=== PATIENT | female | born 1990 | race Caucasian/White ===

== ENCOUNTER 2017-12-14 15:54 | Inpatient (IN) | payer OTHER ==
[~2017-12-14 15:54] MED LIST: Dexamethasone 20 MG/5 ML VIAL ONE; Glycopyrrolate 0.2 MG/ML 5 ML SYRINGE ONE; Ketorolac Tromethamine 30 MG/ML VIAL ONE; Lidocaine 1% PF 5 ML VIAL ONE; Ondansetron HCl/PF 4 MG/2 ML Vial ONE; PROPOFOL 200 MG/20 ML VIAL ONE; Succinylcholine Chloride 20 MG/ML 10 ml SYRINGE FS ONE
[2017-12-14] MEDS ORDERED: CEFAZOLIN 1 GM VIAL ONE ×2 (15:58→16:10)
[2017-12-14] MEDS ORDERED: Adacel (T-DAP) 0.5 ML VIAL ONE (15:58)
[2017-12-14] MEDS ORDERED: Fentanyl 100 MCG/2 ML VIAL ONE ×2 (16:02→16:28)
[2017-12-14 16:09] LABS: #Basophils 0.2 thou/uL (0.0-0.2); #Eosinphils 0.2 thou/uL (0.0-0.7); #Lymphocytes 4.4 thou/uL (1.20-3.40); #Monocytes 0.6 thou/uL (0.11-0.59); #Neutrophils 5.5 thou/uL (1.40-6.50); %Basophils 2.2 % (0.0-1.0); %Eosinophils 1.7 % (0.0-10.0); %Monocytes 5.8 % (0.0-10.0); %Neutrophils 50.4 % (42.0-75.0); Hemoglobin 13.1 g/dL (12.0-16.0); Mean Corpuscular HGB CONC 34.6 g/dL (32.0-36.0); Mean Corpuscular Volume 92.4 fL (78.0-98.0); Mean Platelet Volume 7.3 fL (7.4-10.4); Platelet Count 266 thou/uL (130-400); RBC Distribution Width 13.7 % (11.5-14.5); White Blood Cell (WBC) Count 10.9 thou/uL (4.8-10.8)
[2017-12-14] MEDS ORDERED: Midazolam HCl 5 mg/5 ml Vial ONE (16:10)
[2017-12-14] MEDS ORDERED: Phenylephrine HCL 10 MG/ML VIAL ONE (16:10)
[2017-12-14] MEDS ORDERED: traMADol HCl 50 MG TAB PO PRN ×2 (16:13→18:38)
[2017-12-14] MEDS ORDERED: Dextrose 50% Abboject 50 ML SYRINGE SLOW IVP PRN ×2 (16:14→18:38)
[2017-12-14] MEDS ORDERED: Ondansetron HCl/PF 4 MG/2 ML Vial IVP PRN ×2 (16:14→18:46)
[2017-12-14] MEDS ORDERED: Dextrose 5% in Water 1,000 ML IV PRN ×2 (16:14→18:38)
[2017-12-14] MEDS ORDERED: Ondansetron ODT 4 MG TAB PO PRN ×2 (16:14→18:39)
[2017-12-14] MEDS ORDERED: Acetaminophen 500 MG TAB PO SCH (16:15)
[2017-12-14] MEDS ORDERED: Ibuprofen 800 MG TAB PO SCH (16:15)
[2017-12-14] MEDS ORDERED: traMADol HCl 50 MG TAB PO SCH (16:15)
[2017-12-14 16:22] LABS: PTT 21.5 SEC (22.9-36.1)
[2017-12-14 16:24] LABS: BHCG - Serum Negative (NEGATIVE); Pregs Control Background? CLEAR/WHITE (CLR/WHITE); Pregs Control Bar Appear? YES (CONTROL BAR)
[2017-12-14 16:26] LABS: ALT (SGPT) 22 U/L (8-55); AST (SGOT) 12 U/L (5-34); Albumin 3.5 g/dL (3.5-5.0); Alkaline Phosphatase 43 U/L (40-150); Anion Gap 12 mmol/L (10-20); BUN (Urea Nitrogen) 10 mg/dL (7.0-18.7); Bilirubin, Total 0.4 mg/dL (0.2-1.2); Calc. Creatinine Clearance 0 mL/min (70-130); Calcium 8.3 mg/dL (7.8-10.44); Carbon Dioxide 23 mmol/L (22-29); Chloride 109 mmol/L (98-107); Estimated GFR-MDRD Greater than 90; Globulin 2.2 g/dL (2.4-3.5); Glucose 87 mg/dL (70-105); Potassium 3.8 mmol/L (3.5-5.1); Protein, Total 5.7 g/dL (6.0-8.3); Sodium 140 mmol/L (136-145)
--- NOTE | 2017-12-14 16:45 | RAD ---
AP AND LATERAL VIEWS RIGHT FOREARM: 12/14/17 HISTORY: Soft tissue injury. AP and lateral views right forearm demonstrates the radiograph not to be true AP and lateral views wi th extensive angulation seen. No definite evidence of radial or ulnar fractures seen. Due to the angulation, some portions of the i mages are blurry as they are far away from the digital cassette. IMPRESSION: Unremarkable but suboptimal right forearm radiographs. POS: [facility]
[2017-12-14] MEDS ORDERED: Ferrous Sulfate 325 MG TAB PO SCH (17:00)
[2017-12-14] MEDS ORDERED: Heparin 5,000 UNITS/ML VIAL ONE (17:09)
[2017-12-14] MEDS ORDERED: Papaverine 60 MG/2 ML VIAL ONE (17:36)
[2017-12-14] MEDS ORDERED: HYDROmorphone 0.5 MG/0.5 ML SYRINGE ONE ×2 (17:42→17:54)
[2017-12-14] MEDS ORDERED: Promethazine HCl 25 MG/ML VIAL SLOW IVP PRN (18:46)
[2017-12-14] MEDS ORDERED: HYDROmorphone 2 MG/ML VIAL SLOW IVP PRN (18:46)
[2017-12-14] MEDS ORDERED: Promethazine HCl 25 MG/ML VIAL IM PRN (18:46)
[2017-12-14 19:54] VITALS: BMI 31.1
[2017-12-14] MEDS: Acetaminophen 500 MG TAB PO SCH (20:33)
[2017-12-14] MEDS: Ibuprofen 800 MG TAB PO SCH (20:34)
[2017-12-14] MEDS: Gabapentin 100 MG CAP PO SCH (20:44)
[2017-12-14] MEDS: traMADol HCl 50 MG TAB PO SCH (20:44)
[2017-12-14] MEDS: Ascorbic Acid 500 mg Chewable Tablet PO SCH (20:45)
[2017-12-14] MEDS: Senokot S 8.6-50 MG TAB PO SCH (20:45)
[2017-12-14] MEDS ORDERED: Senokot S 8.6-50 MG TAB PO SCH (21:00)
[2017-12-14] MEDS ORDERED: Ascorbic Acid 500 mg Chewable Tablet PO SCH (21:00)
[2017-12-14] MEDS ORDERED: Gabapentin 100 MG CAP PO SCH (21:00)
[2017-12-14] MEDS: Nicotine 21 MG PATCH TOP SCH (22:46)
[2017-12-15] MEDS: Acetaminophen 500 MG TAB PO SCH ×4 (00:23→17:32)
[2017-12-15] MEDS: Ibuprofen 800 MG TAB PO SCH ×3 (00:24→18:57)
[2017-12-15] MEDS: traMADol HCl 50 MG TAB PO SCH ×4 (00:24→17:31)
[2017-12-15] MEDS: Aspirin 325 MG TAB PO SCH (08:29)
[2017-12-15] MEDS: Ascorbic Acid 500 mg Chewable Tablet PO SCH ×2 (08:29→20:36)
[2017-12-15] MEDS: Gabapentin 100 MG CAP PO SCH ×3 (08:29→20:36)
[2017-12-15] MEDS: Senokot S 8.6-50 MG TAB PO SCH ×2 (08:30→20:36)
[2017-12-15] MEDS: Ferrous Sulfate 325 MG TAB PO SCH ×2 (08:30→17:31)
[2017-12-15] MEDS: Polyethylene Glycol 3350 17 GM Packet PO SCH (08:30)
[2017-12-15] MEDS ORDERED: Polyethylene Glycol 3350 17 GM Packet PO SCH (09:00)
--- NOTE | 2017-12-15 09:02 | OP ---
PREOPERATIVE DIAGNOSIS: Laceration of volar ulnar aspect of the wrist with ulnar nerve and artery di vision. SURGEON: Alfonzo Hurley M.D. STOCK SUPERVISOR: Dr. Shaw Langley. PROCEDURE PERFORMED: Wound exploration approximation of ulnar nerve, closure of wound. INDICATIONS: This is a 27-year-old female who hit a glass window with a fist, it broke and she lacer ated her volar wrist on the ulnar aspect with an arterial bleed. FINDINGS: The ulnar nerve was transected. The ulnar artery was lacerated and crushed. This was rep aired intraoperatively by Dr. Tellez. PROCEDURE IN DETAIL: On emergency basis with a tourniquet applied, patient was taken to the operatin g room and given general endotracheal anesthesia. A pneumatic tourniquet was placed more proximal on the right arm towards the axilla and the ambulance tourniquet was removed. The arm was prepped and draped in usual fashion. The wound was thoroughly irrigated. Irrigation fluid removed, then the angie rniquet was slowly taken down and at this point, there was no bleeding. Doppler of the radial artery was fine in fact, it was palpable. Doppler of the ulnar artery was fine, but it was coming through the palmar arch. Because you could see both proximal and distal to the crush, there was a crush inju ry of the ulnar artery and there was no flow through that segment. There was probably about 3 mm in length, so there was then we got some bleeding from a side branch, which controlled with small clips and further extended the incision to dissect out the ulnar artery proximally and distally. Control w as also obtained proximally and distally using rubber vessel loops. The ulnar nerve was then looked for and that had been completely divided and had retracted. While waiting for the vascular surgeon t o arrive just used a 6-0 in the perineural area to reapproximate the ulnar nerve for future repair. Then Dr. Doroteo Tellez arrived and repaired the ulnar artery. Hemostasis was assured. The wound thoroughly irrigated. There was a superficial tendon that was also disrupted. The hand johnson aldrich was not available, because who was in another room, but he came in and advise us to just going clos e and that he would finish the repair later, so the subcutaneous was reapproximated with interrupted 3-0 Vicryl. Skin closed with interrupted 4-0 Rapide. Steri-Strips applied. Sterile bandage applied . There were also two lacerations on her index finger and posterior hand. These were closed with in terrupted 4-0 vertical mattress sutures with nylon.
--- NOTE | 2017-12-15 09:02 | HP ---
CHIEF COMPLAINT: Laceration of the right wrist. HISTORY: Patient is a 27-year-old female who got frustrated and hit a window, breaking it sustaining a laceration to her right anterior wrist ulnar side. She had arterial pumping from the wound. She applied pressure and went to EMS and walked into EMS, and she was brought here by ambulance. This oc curred probably about an hour ago and apparently estimate is about 1 liter blood loss. She did have tachycardia and hypotension at one point and that responded quickly to fluids. She is also right canales ded. PAST MEDICAL HISTORY: Significant for hypothyroidism. PAST SURGICAL HISTORY: She has had a lipoma removed from her chest. ALLERGIES: She is allergic to NUBAIN and PENICILLIN. MEDICATIONS: She is on no medications. FAMILY HISTORY: Negative. SOCIAL HISTORY: She is , smokes one half pack per day. Social alcohol. PHYSICAL EXAMINATION: VITAL SIGNS: She is afebrile, pulse 116, blood pressure 119/88. GENERAL: She is awake and alert, GCS 15. HEENT: Pupils are equal, round, and reactive. Extraocular motor intact. Pharynx clear. Good denti tion. NECK: Supple, no thyroid masses, no carotid bruits. LUNGS: Clear. HEART: Regular rate and rhythm. ABDOMEN: Soft, nondistended, nontender. Pelvis unremarkable. LOWER EXTREMITIES: Unremarkable. She has a tourniquet in place on the right forearm with a 5-cm lac eration ulnar aspect of the volar right hand. When the tourniquet was decompressed, I could feel a g ood radial pulse and there was a thready ulnar pulse. Then we got a fairly significant arterial blee ding from the wound which could not be visualized in the ER. The tourniquet was reapplied. ASSESSMENT: Laceration with possible ulnar artery injury. PLAN: the operating room.
--- NOTE | 2017-12-15 09:02 | OP ---
DATE OF PROCEDURE: 12/14/2017 PROCEDURE PERFORMED: Primary repair of distal right ulnar artery. PREOPERATIVE DIAGNOSIS: Transected right ulnar artery. POSTOPERATIVE DIAGNOSIS: Transected right ulnar artery. SURGEON: Dr. Doroteo Tellez. CAREER TRANSITION SPECIALIST: Dr. Hurley. ANESTHESIA: General endotracheal anesthesia. INDICATIONS: Patient is a 27-year-old woman with laceration on her right wrist after being cut on a window pane. She had pulsatile bleeding that was brought under control with tourniquet and upon exploration in the operating room, she was found to have a transected ulnar artery. NARRATIVE REPORT: Patient was taken to the operating room and placed in supine position on the operating table. General endotracheal anesthesia was induced. Her right arm was prepped and draped in sterile fashion, and the wound was explored by Dr. Hurley. While I was in transit, he was able to identify the transected ends of the ulnar artery. They were not bleeding. Upon my arrival on the examination of the wound, the proximal and distal stumps of the vessel were mobilized, ligating, and dividing a few small side branches on either side to facilitate mobilization. The ends were freshened. A #3 Andrew catheter was passed proximally and distally. No thrombus was extracted. Brisk inflow and backflow bleeding was reestablished. Dilute papaverine solution was then instilled intraluminally into either end of the vessel and the vessels occluded distally with forceps pressure to allow for auto dilation with intraluminal vasodilator. Vascular clamps were then reapplied at proximally and distally such that there was no tension on the anastamosis. Two 7-0 Prolene sutures were then used in a modified Alfredo technique to reanastomosis the two ends, end-to-end. Bleeding from one-side branch near the anastomosis was noted upon removal of the vascular clamps. This was readily controlled with a small Hemoclip, perivascular tissue was then reapproximated to further guard against undue tension on the anastomosis. The hand was pink with a brisk capillary refill in all of the fingertips. The dopplerable palmar arch and digital vessels in the thumb and fifth finger were readily identified. MTDD
--- NOTE | 2017-12-15 09:02 | CON ---
DATE OF CONSULTATION: 12/14/2017 REQUESTING PHYSICIAN: Dr. Hurley. CHIEF COMPLAINT: Pulsatile bleeding from right wrist wound. HISTORY OF PRESENT ILLNESS: Intraoperative consult Dr. Hurley contacted me from the emergency room sh ortly before the patient was to be transported to the operating room. This is a young woman who appa rently put her hand through a window pane and had extensive bleeding from the wound on the ulnar vola r aspect of her right wrist. Bleeding was brought under control with placement of a tourniquet and s he reports some numbness along the ulnar aspect of her hand about 20-30 minutes into the tourniquet t bhaskar. No other history or review of systems is possible that the patient is under anesthesia. PHYSICAL EXAMINATION: Physical examination was limited to the operative field and the monitors. VITAL SIGNS: Patient's vital signs under anesthesia, heart rate of 92, blood pressure is 97/46. EXTREMITIES: There is an oblique laceration several centimeters wide long extending primarily transv ersely on the distal volar right forearm near the wrist centered toward the ulnar aspect, there is se ryan nerve and Dr. Hurley has exposed the transected ends of the ulnar artery. The hand has been pre pped, but appears to be pink and a pulse is visible in the distal stump of the ulnar artery. IMPRESSION AND RECOMMENDATIONS: Although the hand appears to be adequately perfused based on its col or and good capillary refill and supported by the obvious pole sensations in the distal stump of the ulnar artery, it is probably advisable to at least attempt repair of the ulnar artery.
[2017-12-15] MEDS: Ondansetron HCl/PF 4 MG/2 ML Vial IVP PRN (10:36)
[2017-12-15] MEDS ORDERED: Sodium Chloride 0.9% 500 ML IVPB SCH (14:30)
--- NOTE | 2017-12-15 15:00 | PRG ---
DATE OF SERVICE: 12/15/2017. SUBJECTIVE: This is a 27-year-old female who presented to [place] ER status post trauma to right upper extremity secondary to punching her hand through a glass plate. The patient did sustain ulnar artery and nerve damage. She was taken to the operating room with Dr. Hurley and Dr. Geoff kevin for repair of her ulnar artery. She is going to be seen by Dr. Wells for ulnar nerve damage . Upon my evaluation this morning, the patient states that her pain has been well controlled and voc alized no complaints. OBJECTIVE: VITAL SIGNS: Temperature 98.0, pulse 87, respirations 16, O2 sat 96% on room air, blood pressure 116 /78. GENERAL: Resting in bed. No acute distress. LUNGS: Breathing is nonlabored. ABDOMEN: Soft, nontender, nondistended. MUSCULOSKELETAL: Right upper extremity dressing is clean, dry, and intact. She is neurovascularly i ntact except to the site of her injury. NEUROLOGIC: No focal deficit is noted. LABORATORY FINDINGS: No new laboratory findings. ASSESSMENT: 1. Status post right upper extremity trauma. 2. Right wrist laceration with ulnar nerve and artery damage. 3. Acute traumatic pain. PLAN: Continue pain management as ordered. Encouraged mobility. Encourage incentive spirometry and pulmonary toileting. The patient will be evaluated by Dr. Wells later this afternoon. Plan of c are was discussed with the patient. All questions were answered at the time of this dictation. Lani ent has been discussed with trauma attending.
[2017-12-15] MEDS ORDERED: Clindamycin/D5W 600 MG in Premix Bag 1 BAG IVPB SCH (16:00)
[2017-12-15] MEDS: Nicotine 21 MG PATCH TOP SCH (20:36)
[2017-12-15] MEDS: CEFAZOLIN 1 GM in Sodium Chloride 0.9% 100 ML IVPB SCH (22:09)
[2017-12-15] MEDS ORDERED: diphenhydrAMINE 25 MG CAP PO SCH (22:45)
[2017-12-16] MEDS: traMADol HCl 50 MG TAB PO SCH ×5 (00:30→23:57)
[2017-12-16] MEDS: Acetaminophen 500 MG TAB PO SCH ×5 (00:30→23:57)
[2017-12-16] MEDS: Nicotine 21 MG PATCH TOP SCH ×2 (03:28→23:53)
[2017-12-16] MEDS: Ibuprofen 800 MG TAB PO SCH ×3 (03:29→19:06)
[2017-12-16 05:18] LABS: #Basophils 0.1 thou/uL (0.0-0.2); #Eosinphils 0.1 thou/uL (0.0-0.7); #Lymphocytes 4.1 thou/uL (1.20-3.40); #Monocytes 0.7 thou/uL (0.11-0.59); #Neutrophils 6.4 thou/uL (1.40-6.50); %Basophils 0.5 % (0.0-1.0); %Lymphocytes 36.5 % (21.0-51.0); %Monocytes 5.7 % (0.0-10.0); %Neutrophils 56.3 % (42.0-75.0); Hemoglobin 10.7 g/dL (12.0-16.0); Mean Corpuscular HGB CONC 33.1 g/dL (32.0-36.0); Mean Corpuscular Hemoglobin 30.9 pg (27.0-31.0); Mean Corpuscular Volume 93.5 fL (78.0-98.0); Mean Platelet Volume 7.4 fL (7.4-10.4); Platelet Count 230 thou/uL (130-400); RBC Distribution Width 13.8 % (11.5-14.5); Red Blood Cell (RBC) Count 3.46 mill/uL (4.20-5.40); White Blood Cell (WBC) Count 11.4 thou/uL (4.8-10.8)
[2017-12-16] MEDS: CEFAZOLIN 1 GM in Sodium Chloride 0.9% 100 ML IVPB SCH ×3 (06:22→23:53)
[2017-12-16] MEDS: Ferrous Sulfate 325 MG TAB PO SCH ×2 (08:16→19:05)
[2017-12-16] MEDS: Sodium Chloride 0.9% 1,000 ML IV SCH ×2 (08:26→19:05)
[2017-12-16] MEDS: Gabapentin 100 MG CAP PO SCH ×3 (08:30→21:00)
[2017-12-16] MEDS: Aspirin 325 MG TAB PO SCH (09:33)
[2017-12-16] MEDS: Ascorbic Acid 500 mg Chewable Tablet PO SCH ×2 (09:33→21:00)
[2017-12-16] MEDS: Polyethylene Glycol 3350 17 GM Packet PO SCH (09:34)
[2017-12-16] MEDS: Senokot S 8.6-50 MG TAB PO SCH ×2 (09:34→21:00)
--- NOTE | 2017-12-16 11:05 | PRG ---
DATE OF SERVICE: 12/16/2017 SUBJECTIVE: This is a 27-year-old female, status post laceration to the wrist after punching through a piece of glass. She sustained an ulnar artery and nerve damage. She is postop day #2 status post her ulnar artery repair with Dr. Tellez and Dr. Hurley. She has been seen and evaluated with Dr Alanna Wells and currently n.p.o. for repair of her ulnar nerve. Upon our evaluation this morning, the patient states her pain has been well controlled and she vocalized no complaint. OBJECTIVE: VITAL SIGNS: Temperature 98.2, pulse 100, respirations 14, O2 sat 99% on room air, blood pressure 12 6/82. GENERAL: A young female sitting on the edge of bed, in no acute distress. PULMONARY: Normal work of breathing. Symmetric rise. CARDIOVASCULAR: Mildly tachycardic, no obvious murmurs, rubs, or gallops. GASTROINTESTINAL: Abdomen is soft, nontender, nondistended. MUSCULOSKELETAL: Right upper extremity dressing clean, dry, and intact. She has limited mobility of the fourth and fifth fingers, but she has good capillary refill. NEUROLOGIC: No focal deficit is noted. LABORATORY FINDINGS: WBC 11.4, hemoglobin 10.7, hematocrit 32.4, platelet count 230. ASSESSMENT: 1. Status post right upper extremity trauma secondary to glass. 2. Right wrist laceration with ulnar nerve and artery damage. 3. Acute traumatic pain. PLAN: The patient to OR with Dr. Wells later today. We will follow up postoperatively. Continue PT and OT. Encouraged mobility. Follow up with Dr. Wells postoperatively. Plan of care was dis cussed with the patient. All questions were answered at the time of this dictation. The patient was seen and evaluated with Dr. Harvey.
[2017-12-16] MEDS: Ondansetron HCl/PF 4 MG/2 ML Vial IVP PRN (13:52)
[2017-12-16] MEDS ORDERED: Ketorolac Tromethamine 30 MG/ML VIAL ONE (14:13)
[2017-12-16] MEDS ORDERED: Dexamethasone 20 MG/5 ML VIAL ONE (14:13)
[2017-12-16] MEDS ORDERED: PROPOFOL 200 MG/20 ML VIAL ONE (14:13)
[2017-12-16] MEDS ORDERED: Ondansetron HCl/PF 4 MG/2 ML Vial ONE (14:13)
[2017-12-16] MEDS ORDERED: Lidocaine 1% PF 5 ML VIAL ONE (14:13)
[2017-12-16] MEDS ORDERED: Clindamycin/D5W 600 mg/50 ml Premix Bag ONE (16:15)
[2017-12-16] MEDS ORDERED: Betamet Acet/Betamet Na Ph 30 MG/5 ML VIAL ONE (19:11)
[2017-12-16] MEDS ORDERED: Bacitracin Zinc Ointment 30 gm TUBE ONE (19:11)
[2017-12-16] MEDS ORDERED: Midazolam HCl 2 mg/2 ml Vial ONE (19:15)
[2017-12-16] MEDS ORDERED: HYDROmorphone 0.5 MG/0.5 ML SYRINGE ONE ×3 (19:38→21:54)
[2017-12-16] MEDS ORDERED: HYDROmorphone 2 MG/ML VIAL SLOW IVP PRN (22:55)
[2017-12-16] MEDS ORDERED: Promethazine HCl 25 MG/ML VIAL IM PRN (22:55)
[2017-12-16] MEDS ORDERED: Promethazine HCl 25 MG/ML VIAL SLOW IVP PRN (22:55)
[2017-12-16] MEDS ORDERED: Ondansetron HCl/PF 4 MG/2 ML Vial IVP PRN (22:55)
[2017-12-16] MEDS ORDERED: Promethazine HCl 25 MG/ML VIAL ONE (23:10)
[2017-12-16] MEDS ORDERED: traMADol HCl 50 MG TAB PO PRN (23:13)
[2017-12-16] MEDS ORDERED: Acetaminophen 325 MG TAB PO PRN (23:13)
[2017-12-16] MEDS ORDERED: Ondansetron ODT 4 MG TAB PO PRN (23:13)
[2017-12-16] MEDS ORDERED: HYDROcodone/Acetaminophen 5/325 mg Tablet PO PRN (23:13)
[2017-12-16] MEDS ORDERED: Communication Order-Pharmacy FS SCH (23:15)
[2017-12-16] MEDS ORDERED: TETANUS AND DIPHTHERIA TOX/PF 0.5 ML DISP.SYRIN IM SCH (23:15)
[2017-12-16] MEDS ORDERED: Fentanyl 100 MCG/2 ML VIAL ONE (23:18)
[2017-12-16] MEDS ORDERED: Ketorolac Tromethamine 30 MG/ML VIAL IVP SCH (23:59)
[2017-12-17] MEDS: Ibuprofen 800 MG TAB PO SCH ×3 (03:06→17:46)
[2017-12-17 06:31] LABS: #Monocytes 0.2 thou/uL (0.11-0.59); #Neutrophils 8.8 thou/uL (1.40-6.50); %Basophils 0.1 % (0.0-1.0); %Lymphocytes 9.8 % (21.0-51.0); %Monocytes 1.6 % (0.0-10.0); %Neutrophils 88.5 % (42.0-75.0); Hemoglobin 10.8 g/dL (12.0-16.0); Mean Corpuscular HGB CONC 33.8 g/dL (32.0-36.0); Mean Corpuscular Hemoglobin 31.4 pg (27.0-31.0); Mean Platelet Volume 7.5 fL (7.4-10.4); Platelet Count 228 thou/uL (130-400); RBC Distribution Width 13.8 % (11.5-14.5); Red Blood Cell (RBC) Count 3.44 mill/uL (4.20-5.40)
[2017-12-17] MEDS: CEFAZOLIN 1 GM in Sodium Chloride 0.9% 100 ML IVPB SCH ×3 (06:49→21:35)
[2017-12-17] MEDS: Acetaminophen 500 MG TAB PO SCH ×3 (06:49→20:37)
[2017-12-17] MEDS: traMADol HCl 50 MG TAB PO SCH ×3 (06:49→17:47)
[2017-12-17] MEDS: Ferrous Sulfate 325 MG TAB PO SCH ×2 (08:55→17:46)
[2017-12-17] MEDS: Ascorbic Acid 500 mg Chewable Tablet PO SCH ×2 (08:55→20:37)
[2017-12-17] MEDS: Gabapentin 100 MG CAP PO SCH ×3 (08:55→20:36)
[2017-12-17] MEDS: Polyethylene Glycol 3350 17 GM Packet PO SCH (08:56)
[2017-12-17] MEDS: Senokot S 8.6-50 MG TAB PO SCH ×2 (08:56→20:38)
[2017-12-17] MEDS: Aspirin 81 mg Enteric Coated Tablet PO SCH ×2 (09:01→20:36)
[2017-12-17] MEDS: Nicotine 21 MG PATCH TOP SCH (20:38)
[2017-12-17] MEDS ORDERED: diphenhydrAMINE 25 MG CAP PO SCH (21:00)
--- NOTE | 2017-12-18 00:15 | PRG ---
DATE OF SERVICE: 12/17/2017 ATTENDING PHYSICIAN: Dr. Gustavo Harvey. SUBJECTIVE: Ms. Akers is a 27-year-old female status post laceration to her left wrist after punch ing through a piece of glass. She was taken to the OR by Dr. Tellez and Dr. Hurley for ulnar art venkat repair, postoperative day #3. She has also been taken to the OR by Dr. Wells for repair of he r ulnar nerve, postoperative day #1. She is seen this morning up ambulatory in the hallway. She sta paola the pain is well controlled. OBJECTIVE: VITAL SIGNS: Temperature 98.3, pulse 95, respirations 16, O2 sat 97% room air, blood pressure 127/85 . GENERAL: Well-developed, well-nourished female walking in hallway. No acute distress. PULMONARY: Bilateral breath sounds clear. Symmetric movement of chest. CARDIOVASCULAR: Regular rate and rhythm. GASTROINTESTINAL: Abdomen is soft, nontender, nondistended. MUSCULOSKELETAL: Right upper extremity with dressing in place, clean, dry, and intact. Cap refill b risk. NEUROLOGIC: GCS 15. Awake, alert, oriented x3. LABORATORY DATA: CBC: WBC 10.0, RBC 3.44, hemoglobin 10.8, hematocrit 32.0, platelets 228. ASSESSMENT: 1. Status post right upper extremity trauma secondary to punching hand through a glass. 2. Right wrist laceration with ulnar nerve and artery damage, status post repair. 3. Acute traumatic pain, well controlled. PLAN: 1. Continue antibiotics per Dr. Wells's recommendation. 2. Continue mobilizing as tolerated. 3. Encourage pulmonary toilet and incentive spirometry. 4. Continue aspirin as ordered. 5. Continue oral analgesia. The patient was seen and examined with Dr. Harvey who agrees with plan.
[2017-12-18] MEDS: traMADol HCl 50 MG TAB PO SCH ×2 (01:18→06:22)
[2017-12-18] MEDS: Acetaminophen 500 MG TAB PO SCH ×2 (03:44→08:28)
[2017-12-18] MEDS: Ibuprofen 800 MG TAB PO SCH ×2 (03:44→10:31)
[2017-12-18] MEDS: CEFAZOLIN 1 GM in Sodium Chloride 0.9% 100 ML IVPB SCH (06:22)
[2017-12-18 08:10] VITALS: BP 147/98; TEMP 98.1
[2017-12-18] MEDS: Ascorbic Acid 500 mg Chewable Tablet PO SCH (08:27)
[2017-12-18] MEDS: Ferrous Sulfate 325 MG TAB PO SCH (08:27)
[2017-12-18] MEDS: Gabapentin 100 MG CAP PO SCH (08:27)
[2017-12-18] MEDS: Aspirin 81 mg Enteric Coated Tablet PO SCH (08:27)
[2017-12-18] MEDS: Senokot S 8.6-50 MG TAB PO SCH (08:35)
[2017-12-18] MEDS: Polyethylene Glycol 3350 17 GM Packet PO SCH (08:35)
--- NOTE | 2017-12-19 02:44 | DIS ---
DATE OF ADMISSION: 12/14/2017 DATE OF DISCHARGE: 12/18/2017 ADMITTING PHYSICIAN: Dr. Alfonzo Hurley. DISCHARGING PHYSICIAN: Dr. Harvey. CONSULTING PHYSICIAN 1. Dr. Doroteo Tellez. 2. Dr. Wells, orthopedics. REASON FOR HOSPITALIZATION: Penetrating trauma to right hand and wrist. HOSPITAL DIAGNOSES: Laceration to right wrist volar aspect with ulnar nerve and artery division. PROCEDURES: 1. Wound exploration and approximation of ulnar nerve, closure of wound, date 12/14/2017, surgeon Dr Alanna Hurley. Please refer to Dr. Hurley's operative report for complete details. 2. Primary repair of right distal ulnar artery, date 12/14/2017, surgeon, Dr. Tellez. Please r efer to Dr. Tellez's operative report for complete details. 3. Repair microscopic ulnar nerve right, date 12/16/2017, surgeon, Dr. Wells. Please refer to Dr Alanna Wells's operative report for complete details. DISCHARGE CONDITION: Good. DISPOSITION: Home. DISCHARGE MEDICATIONS: 1. Acetaminophen 1000 mg every 6 hours. 2. Vitamin C 500 mg oral twice daily. 3. Aspirin 81 mg oral twice daily. 4. Keflex 500 mg oral every 12 hours. 5. Ferrous sulfate 325 mg oral twice daily with meals. 6. Ibuprofen 800 mg oral every 8 hours. 7. Tramadol 50 mg oral every 6 hours as needed. ACTIVITY: As tolerated. THERAPY: None. DIET: Regular. FOLLOWUP: Dr. Wells in 5 days. BRIEF HISTORY OF HOSPITALIZATION: Ms. Akers is a 27-year-old female who had a window, breaking it, sustaining a laceration to her right anterior wrist. [facility], where she was noted to have arterial bleeding. She had tachycardia and hypotension that re sponded to fluids. She was evaluated in the emergency department as a level 1 trauma activation. May an was taken urgently from the emergency department by Dr. Hurley and Dr. Tellez for repair of art erial bleeding and laceration. Dr. Wells was also consulted. She was then returned to the surgic al floor. She was returned later to the operating room by Dr. Wells for completion of repair of l aceration and injuries. On 12/18/2017, she was cleared for discharge by Dr. Wells. She is to fol low up with Dr. Wells in 5 days. She is discharged with a prescription for antibiotics as well as analgesia and vitamin C and iron. She may follow up with Trauma services in a p.r.n. fashion. Patient was seen and examined with Dr. Harvey who agrees with plan.
--- NOTE | 2017-12-23 10:29 | OP ---
DATE OF PROCEDURE: 12/21/2017 PREOPERATIVE DIAGNOSES: 1. Complete ulnar nerve laceration. 2. Complete flexor carpi ulnaris laceration. 3. Intact ulnar artery. 4. A 4-mm longitudinal laceration, index finger. 5. Left proximal interphalangeal joint, zone 3 extensor tendon. POSTOPERATIVE DIAGNOSES: 1. Complete ulnar nerve laceration. 2. Complete flexor carpi ulnaris laceration. 3. Intact ulnar artery. 4. A 4-mm longitudinal laceration, index finger. 5. Left proximal interphalangeal joint, zone 3 extensor tendon. PROCEDURES PERFORMED: Left index finger: 1. Wound debridement. 2. Extensor tendon repair, zone 3 at the left index finger. Debridement as follows, A. Intermediate depth down to, but not including the joint. B. Excisional type. C. No gross infection. D. The instrumentation used were Manzanita blade, tenotomy scissors, and Adson's. At the left wrist: 1. Mixed fascicular and epineural microscopic ulnar nerve repair, wrist. 2. Flexor carpi ulnaris complete laceration repair. 3. Repair of 4 cm laceration/closure of wound. 4. Application of Integra nerve sleeve 10-mm diameter. ESTIMATED BLOOD LOSS: 20 mL. INDICATION: Patient has sustained a laceration with life threatening blood loss, required an emergen t vascular surgeon attention, where the wound was debrided. The laceration repair of the ulnar nerve s, and the wound that lightly closed with the identification of all of the lacerations as listed abov e. In the exam prior to surgery, she also had pain with resisted extension and some weak extension a t the left index finger proximal phalangeal joint underneath a 2-cm in laceration. ANESTHESIA: General LMA technique. TOURNIQUET TIME: 120 minutes as listed. COMPLICATIONS: None. INJECTABLE: A 20 mL of 0.5% Marcaine, 15 at the ulnar wound and 5 at the left index finger. DESCRIPTION OF PROCEDURE: After successful general endotracheal anesthesia, the limb was prepped and draped. This included the entire hand, dorsum and palmar of wrist. We then approached the index fi nger, first after exsanguination of the limb and then inflation of tourniquet 250 mmHg pressure. An incision was carried through skin and subcutaneous tissue and immediately after the debridement wo und as described above for the dorsal index finger, PIP joint was revealed a 4-mm longitudinal lacera tion. This wound laceration was cleaned, and then repaired with 2 [id number] Prolene sutures bu ried. We closed the wound with a 4-0 nylon interrupted mattress pattern. Attention was turned to the palmar ulnar wound, which was extended 1 cm distal to proximal in a zigza g fashion. We closed the entire ulnar neurovascular bundle and continued to see that the ulnar arter y was intact. We then dissected it free from the ulnar nerve, where we saw complete laceration. Als o saw complete laceration of flexor carpi ulnaris tendon, but with only minimal wrist flexion and teddy sed easily. There was no other laceration of the median nerve was explored and had no laceration debora ng with the palmar cutaneous branch being intact. Now the flexor tendons were seen lacerated. We then irrigated the area, brought the microscope in th e field, began a mixed fascicular repair using 9-0 Nurolon under microscope. There was were al igned, was easy to align the remaining portion of the 8-0 nylon/Nurolon suture was used to repa ir the epineurium and excellent apposition of the fashion. Then, the blue background placed underneath and used as a guide to place the Integra nerve sleeve. I t was then sutured in place, extended onto repair and the 2 cm width was cut down to approximately 12 mm. This was sutured in place with a 5-0 Prolene simple fashion x3 sutures. We then remembered debridement of the flexor carpi ulnaris, then brought a 3.0-Supramid looped suture onto the field and used the Sammy-Latoya technique to create 6-strand repair that was anatomic. We then sutured back wall and then a front wall, repaired with a running 6-0 Prolene to smooth the edges. T his gave excellent tendon function with the wrist flexed and extended, stability without gap formatio n. Now, however, the wrist remained palmar flexed 30 degrees throughout the remainder portion of the procedure to protect both repairs. Tourniquet was deflated. Hemostasis was obtained. We closed th e wound without evidence of anesthetic or operative complication on both sides. The distal circulati on monitor was pink. We closed with a comminuted, running 4-0 Monocryl deep dermal and the epidermis was repaired with 4-0 nylon interrupted mattress pattern. Bulky dressing was applied, along with a long-arm splint, and the patient left the operating room without any evidence of anesthetic or operat roxana complication.
--- NOTE | 2017-12-24 11:52 | PQF ---
SAUNDRA GAGE RYAN MAURICIO [id number] [facility]- [id number] CLINICAL DOCUMENTATION CLARIFICATION FORM: POST DISCHARGE Addendum to original discharge summary date: ____ Late entry note date: __ Please exercise your independent, professional judgment in responding to the clarification form. Clinical indicators are provided on the bottom of this form for your review Please check appropriate box(s): [ ] Excisional Debridement: [ ] Excised [ ] Cut away [ ] Other: Depth / layer: (deepest layer of debridement): [ ] Skin [ ] SubQ Tissue [ ] Fascia [ ] Muscle [ ] Tendon [ ] Bone Appearance of wound: (e.g., down to fresh bleeding tissue, etc.)___ Margins: (please specify): / x x Instruments used: [ ] Scissors [ ] Scalpel [ ] Curette [ ] Soft tissue clipper [ ] Other: [ ] Non-excisional Debridement: (Removal by flushing, brushing, chemical, or washing) Depth / layer: (deepest layer of debridement): [ ] Skin [ ] Subcutaneous [ ] Fascia [ ] Muscle [ ] Tendon [ ] Bone [ ] Incision and Drainage only (No Debridement): Depth: [ ] Skin [ ] Subcutaneous [ ] Fascia [ ] Muscle [ ] Tendon [ ] Bone [ ] Escharectomy [ ] Other procedure diagnosis [ ] Unable to determine For continuity of documentation, please document condition throughout progress notes and discharge summary. Thank You. CLINICAL INDICATORS - SIGNS / SYMPTOMS / LABS deep laceration right forearm/wrist/finger RISK FACTORS tendon laceration nerve laceration artery laceration TREATMENTS: Surgical intervention SAP Supervisor [employer] Winform Viewerdebridement and repair (This form is maintained as a part of the permanent medical record) 2014 [employer]. All Rights Reserved Kimber [email or web address] [phone] MTDD
--- NOTE | 2017-12-24 12:03 | PQF ---
TOORYAN YEAGER [id number] [facility] A 330 [id number] CLINICAL DOCUMENTATION CLARIFICATION FORM: POST DISCHARGE Addendum to original discharge summary date: ____ Late entry note date: __ Your assistance is needed to assign the appropriate laterality/side for procedures performed on 12/16. Documentaion within the record indicate that the injury was to the Right forearm /hand/fingers. However, your dicataion mentions procedures were performed on the Left.. Please confirm laterality for procedures perfomed. An addedum to the procedure note would be acceptable as well as clarifying below. Please exercise your independent, professional judgment in responding to the clarification form. Clinical indicators are provided on the bottom of this form for your review ( ) Procedure on 12/16 was performed Laterality: [ ] Right [ ] Left [ ] Bilateral CLINICAL INDICATORS - SIGNS/ SYMPTOMS / LABS Op Note/Procedure note 12/16 RISK FACTORS laceration tendon and nerves TREATMENT tendon repair nerver repair (This form is maintained as a part of the permanent medical record) 2014 [employer]. All Rights Reserved Kimber [email or web address] [phone] DEAN
== END 2017-12-18 11:56 | disposition home or self-care (01) | DRG 41 ==
LOC: ERS 15:54 → SDC/OP 18:00 → OBSVTOIN 19:29 → INTOOBSV 19:29 → SURG A 19:29
PROVIDERS: ADMIT Surgery; ATTEND Surgery
PROC: 03Q90ZZ Repair Right Ulnar Artery, Open Approach (ICD-10-PCS; 2017-12-14)
PROC: 0XQNXZZ Repair Right Index Finger, External Approach (ICD-10-PCS; 2017-12-14)
PROC: 0HQDXZZ Repair Right Lower Arm Skin, External Approach (ICD-10-PCS; 2017-12-14)
PROC: 3E0234Z Introduction of Serum, Toxoid and Vaccine into Muscle, Percutaneous Approach (ICD-10-PCS; 2017-12-14)
PROC: 0HQFXZZ Repair Right Hand Skin, External Approach (ICD-10-PCS; 2017-12-14)
PROC: 01Q40ZZ Repair Ulnar Nerve, Open Approach (ICD-10-PCS; principal; 2017-12-16)
PROC: 0JBJ0ZZ Excision of Right Hand Subcutaneous Tissue and Fascia, Open Approach (ICD-10-PCS; 2017-12-16)
PROC: 0LM70ZZ Reattachment of Right Hand Tendon, Open Approach (ICD-10-PCS; 2017-12-16)
PROC: 01U40KZ Supplement Ulnar Nerve with Nonautologous Tissue Substitute, Open Approach (ICD-10-PCS; 2017-12-16)
DX: S64.01XA Injury of ulnar nerve at wrist and hand level of right arm, initial encounter (principal); S65.011A Laceration of ulnar artery at wrist and hand level of right arm, initial encounter; S56.221A Laceration of other flexor muscle, fascia and tendon at forearm level, right arm, initial encounter; W25.XXXA Contact with sharp glass, initial encounter; Z23 Encounter for immunization; E03.9 Hypothyroidism, unspecified; S61.511A Laceration without foreign body of right wrist, initial encounter; S61.210A Laceration without foreign body of right index finger without damage to nail, initial encounter; S61.411A Laceration without foreign body of right hand, initial encounter; G89.11 Acute pain due to trauma; F17.210 Nicotine dependence, cigarettes, uncomplicated; Y92.9 Unspecified place or not applicable; Z79.899 Other long term (current) drug therapy; Z88.5 Allergy status to narcotic agent; Z88.0 Allergy status to penicillin
CPT/HCPCS: 36415; 80053; 82150; 84703; 85025; 85610; 85730; 86850; 86900; 86901; 90471; 90715; 96374; G0390; J0690; J0702; J1100; J1170; J1644; J1885; J2001; J2250; J2370; J2405; J2440; J2550; J2704; J3010; J3490; J7050